=== PATIENT | female | born 1995 | race American Indian/Alaskan Native ===

== ENCOUNTER 2017-03-07 01:49 | Inpatient (IN) | payer MEDICAID, OTHER ==
[2017-03-07] MEDS ORDERED: Penicillin G Potassium 5 MILLUNITS in Sodium Chloride 0.9% 50 ML IV ONE (03:07)
[2017-03-07] MEDS ORDERED: Lactated Ringers 1,000 ML IV SCH (03:15)
[2017-03-07] MEDS ORDERED: fentaNYL 100 MCG/2 ML SDV ONE (04:19)
[2017-03-07] MEDS ORDERED: Lidocaine 1% 50 ML MDV INJECT ONE (04:22)
[2017-03-07] MEDS ORDERED: Lidocaine 1% 50 ML MDV ONE (04:22)
[2017-03-07] MEDS ORDERED: Calcium Carbonate 500 MG Tab.Chew PO PRN (04:56)
[2017-03-07] MEDS ORDERED: Acetaminophen 325 MG Tab PO PRN (04:56)
[2017-03-07] MEDS ORDERED: Sodium Chloride 0.9% 10 ML Syringe FLUSH PRN (04:56)
[2017-03-07] MEDS ORDERED: Witch Hazel Medicated Pads 100/Jar TOP PRN (05:00)
[2017-03-07] MEDS ORDERED: Ibuprofen 600 MG Tab PO PRN (05:00)
[2017-03-07] MEDS ORDERED: Benzocaine 20% Top Spray 56 GM Bottle TOP PRN (05:00)
[2017-03-07] MEDS ORDERED: Docusate Sodium 100 MG Cap PO PRN (05:00)
[2017-03-07] MEDS ORDERED: Measles, Mumps & Rubella Vaccine 0.5 ML SDV SUBCUT ONE (05:00)
--- NOTE | 2017-03-07 05:25 | PCM.LDHP ---
L&D History of Present Illness - General Date of Service: 03/07/17 Admit Problem/Dx: Patient Status Order with Admit Dx/Problem 03/07/17 03:00 Patient Status [ADT] Routine 03/07/17 04:45 Patient Status [ADT] Routine Admission Diagnosis/Problem Admission Diagnosis/Problem Source of Information: Patient - Related Data Allergies/Adverse Reactions: Allergies Allergy/AdvReac Type Severity Reaction Status Date / Time Sulfa (Sulfonamide Allergy Cannot Verified 01/29/14 09:53 Antibiotics) Remember Home Medications: Home Meds Vits #93/Iron Fum/FA [ Formula Tablet] 1 tab PO DAILY 03/07/17 [History] Past Medical History - Past Health History Medical/Surgical History: Denies Medical/Surgical History MARKETING WRITER History: Reports: None : 1 Para: 0 Other OB/BYN History: JORGE-03/10/2017 Psychiatric History: Reports: None - Infectious Disease History Infectious Disease History: Reports: Chicken Pox Social & Family History - Tobacco Use Smoking Status *Q: Current Every Day Smoker Years of Tobacco use: 7 Packs/Tins Daily: 1 Used Tobacco, but Quit: No Second Hand Smoke Exposure: Yes - Caffeine Use Caffeine Use: Reports: Soda - Alcohol Use Days Per Week of Alcohol Use: 0 - Recreational Drug Use Recreational Drug Use: Yes Drug Use in Last 12 Months: Yes Recreational Drug Type: Reports: Marijuana/Hashish, Methamphetamine, Other (see below) Other Recreational Drug Type: hydrocodone Recreational Drug Use Frequency: Weekly H&P Review of Systems - Review of Systems: Review Of Systems: See Below General: Reports: No Symptoms HEENT: Reports: No Symptoms Pulmonary: Reports: No Symptoms Cardiovascular: Reports: No Symptoms Gastrointestinal: Reports: No Symptoms Genitourinary: Reports: No Symptoms Musculoskeletal: Reports: No Symptoms Skin: Reports: No Symptoms Psychiatric: Reports: No Symptoms Neurological: Reports: No Symptoms Hematologic/Lymphatic: Reports: No Symptoms Immunologic: Reports: No Symptoms L&D Exam - Exam Exam: See Below - Vital Signs Vital Signs: Last Vital Signs Temp 36.3 C 03/07/17 04:45 Pulse 79 03/07/17 05:00 Resp 16 03/07/17 05:00 BP 111/83 03/07/17 05:00 Pulse Ox 94 L 03/07/17 05:00 Weight: 111.13 kg - OB Specific Contraction Duration (sec): 50-70 Contraction Frequency (min): 2-5 Contraction Intensity: Moderate - Exam General: Alert, Oriented HEENT: PERRLA, Conjunctiva Clear, EACs Clear, EOMI, Hearing Intact, Mucosa Moist & [place], Nares Patent, Normal Nasal Septum, Posterior Pharynx Clear, TMs Clear Neck: Supple, Trachea Midline Lungs: Clear to Auscultation, Normal Respiratory Effort Cardiovascular: Regular Rate, Regular Rhythm GI/Abdominal Exam: Normal Bowel Sounds, Soft, Non-Tender, No Organomegaly, No Distention, No Abnormal Bruit, No Mass, Pelvis Stable Rectal Exam: Normal Exam, Normal Rectal Tone Genitourinary: Normal external exam, Normal bimanual exam, Normal speculum exam Back Exam: Normal Inspection, Full Range of Motion Extremities: Normal Inspection, Normal Range of Motion, Non-Tender, No Pedal Edema, Normal Capillary Refill Skin: Warm, Dry, Intact Neurological: Cranial Nerves Intact, Reflexes Equal Bilateral Psychiatric: Alert, Normal Affect, Normal Mood - Patient Data Lab Results Last 24 hrs: Laboratory Results - last 24 hr 03/07/17 03/07/17 03/07/17 Range/Units 02:11 02:28 02:29 WBC (4.5-11.0) K/uL RBC (3.30-5.50) M/uL Hgb (12.0-15.0) g/dL Hct (36.0-48.0) % MCV (80-98) fL MCH (27-31) pg MCHC (32-36) % Plt Count (150-400) K/uL Neut % (Auto) (36-66) % Lymph % (Auto) (24-44) % [place] % (Auto) (2-6) % Eos % (Auto) (2-4) % Baso % (Auto) (0-1) % Urine Color Yellow Urine Appearance Cloudy Urine pH 6.0 (4.5-8.0) Ur Specific [place] 1.015 (1.008-1.030) Urine Protein 30 H (NEGATIVE) mg/dL Urine Glucose (UA) Normal (NEGATIVE) mg/dL Urine Ketones Negative (NEGATIVE) mg/dL Urine Occult Blood Large (NEGATIVE) Urine Nitrite Negative (NEGATIVE) Urine Bilirubin Negative (NEGATIVE) Urine Urobilinogen Normal (NORMAL) mg/dL Ur Leukocyte Esterase Moderate (NEGATIVE) Urine RBC 5-10 H (0-5) Urine WBC 5-10 H (0-5) Ur Epithelial Cells Moderate Amorphous Sediment Not seen Urine Bacteria Many Urine Mucus Not seen Membrane Rupture Positive H (NEGATIVE) Urine Opiates Screen Positive H (NEGATIVE) Ur Oxycodone Screen Negative (NEGATIVE) Urine Methadone Screen Negative (NEGATIVE) Ur Propoxyphene Screen Negative (NEGATIVE) Ur Barbiturates Screen Negative (NEGATIVE) Ur Tricyclics Screen Negative (NEGATIVE) Ur Phencyclidine Scrn Negative (NEGATIVE) Ur Amphetamine Screen Positive H (NEGATIVE) U Methamphetamines Scrn Positive H (NEGATIVE) Urine MDMA Screen Negative (NEGATIVE) U Benzodiazepines Scrn Negative (NEGATIVE) U Cocaine Metab Screen Negative (NEGATIVE) U Marijuana (THC) Screen Positive H (NEGATIVE) 03/07/17 Range/Units 03:00 WBC 19.1 H (4.5-11.0) K/uL RBC 4.66 (3.30-5.50) M/uL Hgb 13.3 (12.0-15.0) g/dL Hct 39.2 (36.0-48.0) % MCV 84 (80-98) fL MCH 29 (27-31) pg MCHC 34 (32-36) % Plt Count 401 H (150-400) K/uL Neut % (Auto) 88 H (36-66) % Lymph % (Auto) 7 L (24-44) % [place] % (Auto) 5 (2-6) % Eos % (Auto) 0 L (2-4) % Baso % (Auto) 0 (0-1) % Urine Color Urine Appearance Urine pH (4.5-8.0) Ur Specific [place] (1.008-1.030) Urine Protein (NEGATIVE) mg/dL Urine Glucose (UA) (NEGATIVE) mg/dL Urine Ketones (NEGATIVE) mg/dL Urine Occult Blood (NEGATIVE) Urine Nitrite (NEGATIVE) Urine Bilirubin (NEGATIVE) Urine Urobilinogen (NORMAL) mg/dL Ur Leukocyte Esterase (NEGATIVE) Urine RBC (0-5) Urine WBC (0-5) Ur Epithelial Cells Amorphous Sediment Urine Bacteria Urine Mucus Membrane Rupture (NEGATIVE) Urine Opiates Screen (NEGATIVE) Ur Oxycodone Screen (NEGATIVE) Urine Methadone Screen (NEGATIVE) Ur Propoxyphene Screen (NEGATIVE) Ur Barbiturates Screen (NEGATIVE) Ur Tricyclics Screen (NEGATIVE) Ur Phencyclidine Scrn (NEGATIVE) Ur Amphetamine Screen (NEGATIVE) U Methamphetamines Scrn (NEGATIVE) Urine MDMA Screen (NEGATIVE) U Benzodiazepines Scrn (NEGATIVE) U Cocaine Metab Screen (NEGATIVE) U Marijuana (THC) Screen (NEGATIVE) Result Diagrams: 03/07/17 03:00 - Problem List (1) SNOMED Code(s): 62197852 ICD Code: Z34.90 - ENCNTR FOR SUPRVSN OF NORMAL , UNSP, UNSP TRIMESTER Status: Acute Current Visit: Yes Qualifiers: Weeks of gestation: 40 weeks Qualified Code(s): Z3A.40 - 40 weeks gestation of (2) High risk due to maternal drug abuse in third trimester SNOMED Code(s): 624296232, 177043721 ICD Code: O99.323 - DRUG USE COMPLICATING , THIRD TRIMESTER; F19.90 - OTHER PSYCHOACTIVE SUBSTANCE USE, UNSPECIFIED, UNCOMPLICATED Status: Acute Current Visit: Yes (3) Precipitous delivery SNOMED Code(s): 785020235 ICD Code: O62.3 - PRECIPITATE LABOR Status: Acute Priority: High Current Visit: Yes (4) Prolonged rupture of membranes Status: Acute Priority: High Current Visit: Yes (5) GBS (group B streptococcus) infection SNOMED Code(s): 015959085 ICD Code: A49.1 - STREPTOCOCCAL INFECTION, UNSPECIFIED SITE Status: Acute Priority: High Current Visit: Yes Problem List Initiated/Reviewed/Updated: Yes Orders Last 24hrs: Active Orders 24 hr Category Date Time Status Patient Status [ADT] Routine ADT 03/07/17 03:00 Active Patient Status [ADT] Routine ADT 03/07/17 04:45 Active Ambulate [RC] PER UNIT ROUTINE Care 03/07/17 04:56 Active Communication Order [RC] ASDIRECTED Care 03/07/17 04:56 Active Heart Tones [RC] PER UNIT ROUTINE Care 03/07/17 04:56 Active May Shower [RC] ASDIRECTED Care 03/07/17 04:56 Active Notify Provider Vital Signs [RC] PRN Care 03/07/17 03:00 Active Notify Provider [RC] PRN Care 03/07/17 04:56 Active OB Check [OM.PC] Click to Edit Care 03/07/17 01:54 Ordered Up ad Cecy [RC] ASDIRECTED Care 03/07/17 04:56 Active VTE/DVT Education [RC] Click to Edit Care 03/07/17 04:58 Active Vital Signs [RC] PER UNIT ROUTINE Care 03/07/17 04:56 Active Vital Signs [RC] PFP Care 03/07/17 05:00 Active Regular Diet [DIET] Diet 03/07/17 Breakfast Active CBC W/O DIFF,HEMOGRAM [HEME] Routine Lab 03/08/17 06:00 Ordered Acetaminophen [Tylenol] Med 03/07/17 04:56 Active 650 mg PO Q4H PRN Benzocaine [Qpcv-K-Pkrvqoe 20% [place]] Med 03/07/17 05:00 Active See Dose Instructions TOP Q4H PRN Calcium Carbonate [Tums] Med 03/07/17 04:56 Active 1,000 mg PO Q2H PRN Docusate Sodium [Colace] Med 03/07/17 05:00 Active 100 mg PO BID PRN Ibuprofen [Motrin] Med 03/07/17 05:00 Active 600 mg PO Q6H PRN Lactated Ringers [Ringers, Lactated] 1,000 ml Med 03/07/17 03:15 Active IV BOLUS Oxytocin/Normal Saline [Pitocin in NS 20 Units/1,000 ML Med 03/07/17 04:00 Active ] 20 unit in 1,000 ml IV TITRATE Penicillin G Potassium [Pfizerpen] 2.5 millunits Med 03/07/17 08:00 Active Sodium Chloride 0.9% [Normal Saline] 50 ml IV Q4H Sodium Chloride 0.9% [Saline Flush] Med 03/07/17 04:56 Active 10 ml FLUSH ASDIRECTED PRN Stephanie Smith [Tucks] Med 03/07/17 05:00 Active 1 pad TOP ASDIRECTED PRN Assess Lochia [WOMSER] Per Unit Routine Oth 03/07/17 05:00 Ordered Assess Uterine Involution [WOMSER] Per Unit Routine Oth 03/07/17 05:00 Ordered DVT/VTE Prophylaxis Reflex [OM.PC] Routine Oth 03/07/17 03:00 Ordered Perineal Care [OM.PC] Per Unit Routine Oth 03/07/17 05:01 Ordered Saline Lock Insert [OM.PC] Routine Oth 03/07/17 04:56 Ordered Resuscitation Status Routine Resus Stat 03/07/17 04:56 Ordered Medication Orders Acetaminophen (Tylenol) 650 mg PO Q4H PRN PRN Reason: Pain (Mild 1-3) and fever Benzocaine (Nggg-P-Tglakxq 20% [place]) 0 gm TOP Q4H PRN PRN Reason: Perineal Comfort Measure Calcium Carbonate/Glycine (Tums) 1,000 mg PO Q2H PRN PRN Reason: Indigestion Docusate Sodium (Colace) 100 mg PO BID PRN PRN Reason: Constipation Penicillin G Potassium 2.5 (millunits/ Sodium Chloride) 50 mls @ 50 mls/hr IV Q4H MAXIMUS Lactated Ringer's (Ringers, Lactated) 1,000 mls @ 999 mls/hr IV BOLUS MAXIMUS Last Admin: 03/07/17 03:30 Dose: 999 mls/hr Oxytocin/Sodium Chloride (Pitocin In Ns 20 Units/1,000 Ml) 20 unit in 1,000 mls @ 0 mls/hr IV TITRATE MAXIMUS; KVO PRN Reason: Protocol Ibuprofen (Motrin) 600 mg PO Q6H PRN PRN Reason: mild pain or fever Sodium Chloride (Saline Flush) 10 ml FLUSH ASDIRECTED PRN PRN Reason: Keep Vein Open Stephanie Smith ([place]ellen) 1 pad TOP ASDIRECTED PRN PRN Reason: Hemorrhoids Assessment/Plan Comment:: 03/07/2017 21 yo presented to labor in delivery with SROM of unknown length, yellow in color. JORGE-03/10/2017 SVE per RN- 4/100/0 USDS positive Amnisure positive GBS positive Plan- Monitor labor Monitor FHTs Start IV bolus LR 1000ml Pain management per patient request Up and about if tolerated PCN G for GBS positive Anticipate and plan for a vaginal delivery
--- NOTE | 2017-03-07 05:37 | PCM.DEL ---
L & D Note - General Info Date of Service: 03/07/17 Mother's Due Date: 03/10/17 - Delivery Note Labor: Spontaneous Delivery Outcome: Livebirth Infant Delivery Method: Spontaneous Vaginal Delivery-Single Infant Delivery Mode: Spontaneous Presentation: Left Occiput Anterior (CARLITA) Nuchal Cord: None Anesthesia Type: None Anesthetic: Lidocaine (Xylocaine) 1% Plain Local Anesthetic Volume: 5cc Laceration: Labial Suture type: Chromic Suture size: 3-0 Placenta: Intact, Spontaneous, Meconium Stained Cord: 3 Vessels Resuscitation Needed: No [place]: Bulb Syringe, Stimulated, Warmed, [place] Used Provider: Jyotsna Sinclair Score 1 min: 9 Score 5 min: 9 Score 10 min: 9 Second Stage Interventions: Reports: Encouragement Given, Pushing Effectively Delivery Comments (Free Text/Narrative):: 03/07/2017 21 yo at 39 4/7 gestational weeks normal spontaneous vaginal delivery at 0410 on 03/07/2017 precipitously in CARLITA position. placed on prewarmed blanket on mothers abdomen, cord double clamped and cut, then infant bulb suctioned, warmed, dried, and stimulated and began to vigorously cry and pink in color. APGARS-9/9/9, weight-7lbs 8oz, length-20.2 inches, 3 vessel cord. Placenta spontaneous and intact. Small vaginal laceration repaired in usual fashion, no lacerations noted of the cervix, perineum, or rectum. EBL-250ml. now skin to skin with mother and both stable in labor room. - General Info Admission Dx/Problem (Free Text): Patient Status Order with Admit Dx/Problem 03/07/17 03:00 Patient Status [ADT] Routine 03/07/17 04:45 Patient Status [ADT] Routine Admission Diagnosis/Problem Admission Diagnosis/Problem Functional Status: Reports: Pain Controlled - Review of Systems General: Reports: No Symptoms HEENT: Reports: No Symptoms Pulmonary: Reports: No Symptoms Cardiovascular: Reports: No Symptoms Gastrointestinal: Reports: No Symptoms Genitourinary: Reports: No Symptoms Musculoskeletal: Reports: No Symptoms Skin: Reports: No Symptoms Neurological: Reports: No Symptoms Psychiatric: Reports: No Symptoms - Patient Data Vitals - Most Recent: Last Vital Signs Temp 36.3 C 03/07/17 04:45 Pulse 79 03/07/17 05:00 Resp 16 03/07/17 05:00 BP 111/83 03/07/17 05:00 Pulse Ox 94 L 03/07/17 05:00 Weight - Most Recent: 111.13 kg Lab Results Last 24 Hours: Laboratory Results - last 24 hr 03/07/17 03/07/17 03/07/17 Range/Units 02:11 02:28 02:29 WBC (4.5-11.0) K/uL RBC (3.30-5.50) M/uL Hgb (12.0-15.0) g/dL Hct (36.0-48.0) % MCV (80-98) fL MCH (27-31) pg MCHC (32-36) % Plt Count (150-400) K/uL Neut % (Auto) (36-66) % Lymph % (Auto) (24-44) % [place] % (Auto) (2-6) % Eos % (Auto) (2-4) % Baso % (Auto) (0-1) % Urine Color Yellow Urine Appearance Cloudy Urine pH 6.0 (4.5-8.0) Ur Specific [place] 1.015 (1.008-1.030) Urine Protein 30 H (NEGATIVE) mg/dL Urine Glucose (UA) Normal (NEGATIVE) mg/dL Urine Ketones Negative (NEGATIVE) mg/dL Urine Occult Blood Large (NEGATIVE) Urine Nitrite Negative (NEGATIVE) Urine Bilirubin Negative (NEGATIVE) Urine Urobilinogen Normal (NORMAL) mg/dL Ur Leukocyte Esterase Moderate (NEGATIVE) Urine RBC 5-10 H (0-5) Urine WBC 5-10 H (0-5) Ur Epithelial Cells Moderate Amorphous Sediment Not seen Urine Bacteria Many Urine Mucus Not seen Membrane Rupture Positive H (NEGATIVE) Urine Opiates Screen Positive H (NEGATIVE) Ur Oxycodone Screen Negative (NEGATIVE) Urine Methadone Screen Negative (NEGATIVE) Ur Propoxyphene Screen Negative (NEGATIVE) Ur Barbiturates Screen Negative (NEGATIVE) Ur Tricyclics Screen Negative (NEGATIVE) Ur Phencyclidine Scrn Negative (NEGATIVE) Ur Amphetamine Screen Positive H (NEGATIVE) U Methamphetamines Scrn Positive H (NEGATIVE) Urine MDMA Screen Negative (NEGATIVE) U Benzodiazepines Scrn Negative (NEGATIVE) U Cocaine Metab Screen Negative (NEGATIVE) U Marijuana (THC) Screen Positive H (NEGATIVE) 09/25/17 Range/Units 03:00 WBC 19.1 H (4.5-11.0) K/uL RBC 4.66 (3.30-5.50) M/uL Hgb 13.3 (12.0-15.0) g/dL Hct 39.2 (36.0-48.0) % MCV 84 (80-98) fL MCH 29 (27-31) pg MCHC 34 (32-36) % Plt Count 401 H (150-400) K/uL Neut % (Auto) 88 H (36-66) % Lymph % (Auto) 7 L (24-44) % [place] % (Auto) 5 (2-6) % Eos % (Auto) 0 L (2-4) % Baso % (Auto) 0 (0-1) % Urine Color Urine Appearance Urine pH (4.5-8.0) Ur Specific [place] (1.008-1.030) Urine Protein (NEGATIVE) mg/dL Urine Glucose (UA) (NEGATIVE) mg/dL Urine Ketones (NEGATIVE) mg/dL Urine Occult Blood (NEGATIVE) Urine Nitrite (NEGATIVE) Urine Bilirubin (NEGATIVE) Urine Urobilinogen (NORMAL) mg/dL Ur Leukocyte Esterase (NEGATIVE) Urine RBC (0-5) Urine WBC (0-5) Ur Epithelial Cells Amorphous Sediment Urine Bacteria Urine Mucus Membrane Rupture (NEGATIVE) Urine Opiates Screen (NEGATIVE) Ur Oxycodone Screen (NEGATIVE) Urine Methadone Screen (NEGATIVE) Ur Propoxyphene Screen (NEGATIVE) Ur Barbiturates Screen (NEGATIVE) Ur Tricyclics Screen (NEGATIVE) Ur Phencyclidine Scrn (NEGATIVE) Ur Amphetamine Screen (NEGATIVE) U Methamphetamines Scrn (NEGATIVE) Urine MDMA Screen (NEGATIVE) U Benzodiazepines Scrn (NEGATIVE) U Cocaine Metab Screen (NEGATIVE) U Marijuana (THC) Screen (NEGATIVE) Med Orders - Current: Current Medications Acetaminophen (Tylenol) 650 mg PO Q4H PRN PRN Reason: Pain (Mild 1-3) and fever Benzocaine (Ecqg-Y-Qqpxvzw 20% [place]) 0 gm TOP Q4H PRN PRN Reason: Perineal Comfort Measure Calcium Carbonate/Glycine (Tums) 1,000 mg PO Q2H PRN PRN Reason: Indigestion Docusate Sodium (Colace) 100 mg PO BID PRN PRN Reason: Constipation Penicillin G Potassium 2.5 (millunits/ Sodium Chloride) 50 mls @ 50 mls/hr IV Q4H MAXIMUS Lactated Ringer's (Ringers, Lactated) 1,000 mls @ 999 mls/hr IV BOLUS MAXIMUS Last Admin: 03/07/17 03:30 Dose: 999 mls/hr Oxytocin/Sodium Chloride (Pitocin In Ns 20 Units/1,000 Ml) 20 unit in 1,000 mls @ 0 mls/hr IV TITRATE MAXIMUS; KVO PRN Reason: Protocol Ibuprofen (Motrin) 600 mg PO Q6H PRN PRN Reason: mild pain or fever Sodium Chloride (Saline Flush) 10 ml FLUSH ASDIRECTED PRN PRN Reason: Keep Vein Open Witch Sarah (Tucks) 1 pad TOP ASDIRECTED PRN PRN Reason: Hemorrhoids Discontinued Medications Fentanyl (Sublimaze) Confirm Administered Dose 100 mcg .ROUTE .STK-MED ONE Stop: 03/07/17 04:20 Penicillin G Potassium 5 (millunits/ Sodium Chloride) 50 mls @ 50 mls/hr IV ONETIME ONE Stop: 03/07/17 04:06 Last Admin: 03/07/17 03:47 Dose: 50 mls/hr Lidocaine HCl (Xylocaine 1%) Confirm Administered Dose 50 ml .ROUTE .STK-MED ONE Stop: 03/07/17 04:23 Measles/Mumps/Rubella Vaccine Live (M-M-R Ii Vaccine) 0.5 ml SUBCUT .ONCE ONE Stop: 03/07/17 05:01 - Exam General: Alert, Oriented HEENT: Pupils Equal, Pupils Reactive, EOMI, Mucous Membr. Moist/[place] Neck: Supple Lungs: Clear to Auscultation, Normal Respiratory Effort Cardiovascular: Regular Rate, Regular Rhythm GI/Abdominal Exam: Normal Bowel Sounds, Soft, Non-Tender, No Organomegaly, No Distention, No Abnormal Bruit, No Mass, Pelvis Stable (Female) Exam: Normal External Exam, Normal Speculum Exam, Normal Bimanual Exam Back Exam: Normal Inspection, Full Range of Motion Extremities: Normal Inspection, Normal Range of Motion, Non-Tender, No Pedal Edema, Normal Capillary Refill Skin: Warm, Dry, Intact Wound/Incisions: Healing Well Neurological: No New Focal Deficit Psy/Mental Status: Alert, Normal Affect, Normal Mood - Problem List & Annotations (1) SNOMED Code(s): 96181317 Code(s): Z34.90 - ENCNTR FOR SUPRVSN OF NORMAL , UNSP, UNSP TRIMESTER Status: Acute Current Visit: Yes Qualifiers: Weeks of gestation: 40 weeks Qualified Code(s): Z3A.40 - 40 weeks gestation of (2) High risk due to maternal drug abuse in third trimester SNOMED Code(s): 759190773, 449627583 Code(s): O99.323 - DRUG USE COMPLICATING , THIRD TRIMESTER; F19.90 - OTHER PSYCHOACTIVE SUBSTANCE USE, UNSPECIFIED, UNCOMPLICATED Status: Acute Current Visit: Yes (3) Precipitous delivery SNOMED Code(s): 857285465 Code(s): O62.3 - PRECIPITATE LABOR Status: Acute Priority: High Current Visit: Yes (4) Prolonged rupture of membranes Status: Acute Priority: High Current Visit: Yes (5) GBS (group B streptococcus) infection SNOMED Code(s): 819970370 Code(s): A49.1 - STREPTOCOCCAL INFECTION, UNSPECIFIED SITE Status: Acute Priority: High Current Visit: Yes (6) Laceration of labial mucosa without complication SNOMED Code(s): 284323633 Code(s): S01.512A - LACERATION WITHOUT FOREIGN BODY OF ORAL CAVITY, INIT ENCNTR Status: Acute Current Visit: Yes Qualifiers: Encounter type: initial encounter Qualified Code(s): S01.512A - Laceration without foreign body of oral cavity, initial encounter - Problem List Review Problem List Initiated/Reviewed/Updated: Yes - My Orders Last 24 Hours: My Active Orders 03/07/17 01:54 OB Check [OM.PC] Click to Edit 03/07/17 03:00 Patient Status [ADT] Routine Notify Provider Vital Signs [RC] PRN DVT/VTE Prophylaxis Reflex [OM.PC] Routine 03/07/17 03:15 Lactated Ringers [Ringers, Lactated] 1,000 ml IV BOLUS 03/07/17 04:00 Oxytocin/Normal Saline [Pitocin in NS 20 Units/1,000 ML] 20 unit in 1,000 ml IV TITRATE 03/07/17 04:45 Patient Status [ADT] Routine 03/07/17 04:56 Ambulate [RC] PER UNIT ROUTINE Communication Order [RC] ASDIRECTED Heart Tones [RC] PER UNIT ROUTINE May Shower [RC] ASDIRECTED Notify Provider [RC] PRN Up ad Cecy [RC] ASDIRECTED Vital Signs [RC] PER UNIT ROUTINE Acetaminophen [Tylenol] 650 mg PO Q4H PRN Calcium Carbonate [Tums] 1,000 mg PO Q2H PRN Sodium Chloride 0.9% [Saline Flush] 10 ml FLUSH ASDIRECTED PRN Saline Lock Insert [OM.PC] Routine Resuscitation Status Routine 03/07/17 04:58 VTE/DVT Education [RC] Click to Edit 03/07/17 05:00 Vital Signs [RC] PFP Benzocaine [Oeyy-E-Btzkptp 20% [place]] See Dose Instructions TOP Q4H PRN Docusate Sodium [Colace] 100 mg PO BID PRN Ibuprofen [Motrin] 600 mg PO Q6H PRN Witch Sarah [Tucks] 1 pad TOP ASDIRECTED PRN Assess Lochia [WOMSER] Per Unit Routine Assess Uterine Involution [WOMSER] Per Unit Routine 03/07/17 05:01 Perineal Care [OM.PC] Per Unit Routine 03/07/17 08:00 Penicillin G Potassium [Pfizerpen] 2.5 millunits Sodium Chloride 0.9% [Normal Saline] 50 ml IV Q4H 03/07/17 Breakfast Regular Diet [DIET] 03/08/17 06:00 CBC W/O DIFF,HEMOGRAM [HEME] Routine - Assessment Assessment:: 03/07/2017 21 yo G1 now P1 at 39 4/7 gestational weeks without complications Maternal Drug Use Precipitous Delivery Labs-GBS positive, Rubella equivocal, Hgb-13.3, O positive, Hep B negative, HIV negative, RPR nonreactive, USDS positive for opiates, amphetamines, methamphetamines, and THC Bottlefeeding Prolonged Rupture of Membranes-Unknown time - Plan Plan:: 03/07/2017 21 yo presented to labor in delivery with SROM of unknown length, yellow in color. JORGE-03/10/2017 SVE per RN- 4/100/0 USDS positive Amnisure positive GBS positive Plan- Monitor labor Monitor FHTs Start IV bolus LR 1000ml Pain management per patient request Up and about if tolerated PCN G for GBS positive Anticipate and plan for a vaginal delivery 03/07/2017 Routine Cares Treat UTI-Keflex 500mg BID times three days 48 hour stay due to GBS status
[2017-03-07] MEDS ORDERED: fentaNYL 100 MCG/2 ML SDV IVPUSH ONE (05:47)
[2017-03-07] MEDS ORDERED: Penicillin G Potassium 2.5 MILLUNITS in Sodium Chloride 0.9% 50 ML IV SCH (08:00)
[2017-03-07] MEDS: Cephalexin 250 MG Cap PO SCH ×2 (08:32→18:32)
[2017-03-07] MEDS: Ibuprofen 600 MG Tab PO PRN ×2 (14:07→20:20)
[2017-03-07] MEDS: Acetaminophen 325 MG Tab PO PRN ×2 (16:30→21:58)
[2017-03-08] MEDS: Ibuprofen 600 MG Tab PO PRN ×2 (03:35→15:23)
[2017-03-08] MEDS: Cephalexin 250 MG Cap PO SCH ×2 (06:20→20:46)
--- NOTE | 2017-03-08 08:03 | PCM.PNPP ---
- General Info Date of Service: 03/08/17 Functional Status: Reports: Pain Controlled - Review of Systems General: Reports: No Symptoms HEENT: Reports: No Symptoms Pulmonary: Reports: No Symptoms Cardiovascular: Reports: No Symptoms Gastrointestinal: Reports: No Symptoms Genitourinary: Reports: No Symptoms Musculoskeletal: Reports: No Symptoms Skin: Reports: No Symptoms Neurological: Reports: No Symptoms Psychiatric: Reports: No Symptoms - General Info Date of Service: 03/08/17 - Patient Data Vital Signs - Most Recent: Last Vital Signs Temp 36 C 03/08/17 03:00 Pulse 66 03/08/17 03:00 Resp 14 03/08/17 03:00 BP 123/82 03/08/17 03:00 Pulse Ox 95 03/07/17 16:43 Weight - Most Recent: 111.13 kg Lab Results - Last 24 Hours: Laboratory Results - last 24 hr 03/08/17 Range/Units 04:45 WBC 11.3 H (4.5-11.0) K/uL RBC 3.56 (3.30-5.50) M/uL Hgb 9.9 L D (12.0-15.0) g/dL Hct 30.7 L (36.0-48.0) % MCV 86 (80-98) fL MCH 28 (27-31) pg MCHC 32 (32-36) % Plt Count 292 (150-400) K/uL Med Orders - Current: Current Medications Acetaminophen (Tylenol) 0 mg PO Q4H PRN PRN Reason: Pain Last Admin: 03/07/17 21:58 Dose: 650 mg Benzocaine (Nxow-B-Mhduzln 20% [place]) 0 gm TOP Q4H PRN PRN Reason: Perineal Comfort Measure Last Admin: 03/07/17 14:06 Dose: 1 applic Calcium Carbonate/Glycine (Tums) 1,000 mg PO Q2H PRN PRN Reason: Indigestion Cephalexin (Keflex) 500 mg PO Q12H MAXIMUS Last Admin: 03/08/17 06:20 Dose: 500 mg Docusate Sodium (Colace) 100 mg PO BID PRN PRN Reason: Constipation Oxytocin/Sodium Chloride (Pitocin In Ns 20 Units/1,000 Ml) 20 unit in 1,000 mls @ 0 mls/hr IV TITRATE MAXIMUS; KVO PRN Reason: Protocol Last Titration: 03/07/17 04:45 Dose: 250 ml/hr, 250 mls/hr Ibuprofen (Motrin) 600 mg PO Q6H PRN PRN Reason: Pain Last Admin: 03/08/17 03:35 Dose: 600 mg Sodium Chloride (Saline Flush) 10 ml FLUSH ASDIRECTED PRN PRN Reason: Keep Vein Open Witmarlo Smith (Tucks) 1 pad TOP ASDIRECTED PRN PRN Reason: Hemorrhoids Last Admin: 03/07/17 14:06 Dose: 1 applic Discontinued Medications Acetaminophen (Tylenol) 650 mg PO Q4H PRN PRN Reason: Pain (Mild 1-3) and fever Fentanyl (Sublimaze) Confirm Administered Dose 100 mcg .ROUTE .STK-MED ONE Stop: 03/07/17 04:20 Last Admin: 03/07/17 06:27 Dose: Not Given Fentanyl (Sublimaze) 100 mcg IVPUSH ONETIME ONE Stop: 03/07/17 05:48 Last Admin: 03/07/17 04:30 Dose: 100 mcg Penicillin G Potassium 5 (millunits/ Sodium Chloride) 50 mls @ 50 mls/hr IV ONETIME ONE Stop: 03/07/17 04:06 Last Admin: 03/07/17 03:47 Dose: 50 mls/hr Penicillin G Potassium 2.5 (millunits/ Sodium Chloride) 50 mls @ 50 mls/hr IV Q4H MAXIMUS Lactated Ringer's (Ringers, Lactated) 1,000 mls @ 999 mls/hr IV BOLUS MAXIMUS Last Admin: 03/07/17 03:30 Dose: 999 mls/hr Ibuprofen (Motrin) 600 mg PO Q6H PRN PRN Reason: mild pain or fever Lidocaine HCl (Xylocaine 1%) Confirm Administered Dose 50 ml .ROUTE .STK-MED ONE Stop: 03/07/17 04:23 Last Admin: 03/07/17 04:35 Dose: 50 ml Lidocaine HCl (Xylocaine 1%) 20 ml INJECT ONETIME ONE Stop: 03/07/17 04:23 Last Admin: 03/07/17 08:33 Dose: Not Given Measles/Mumps/Rubella Vaccine Live (M-M-R Ii Vaccine) 0.5 ml SUBCUT .ONCE ONE Stop: 03/07/17 05:01 - Interaction Disposition, : [place] to Nursery Feeding: Bottle Fed Support Person: Mother - Recovery Exam Fundal Tone: Firm Fundal Level: At Umbilicus Fundal Placement: Midline Lochia Amount: Scant Lochia Color: Rubra/Red Perineum Description: Intact, Minimal Bruising/Swelling Episiotomy/Laceration: None - Exam General: Alert, Oriented HEENT: Pupils Equal Neck: Supple Lungs: Clear to Auscultation, Normal Respiratory Effort Cardiovascular: Regular Rate, Regular Rhythm GI/Abdominal Exam: Normal Bowel Sounds, Soft, Non-Tender, No Organomegaly, No Distention, No Abnormal Bruit, No Mass, Pelvis Stable Extremities: Normal Inspection, Normal Range of Motion, Non-Tender, No Pedal Edema, Normal Capillary Refill Skin: Warm, Dry, Intact Wound/Incisions: Healing Well Neurological: No New Focal Deficit Psy/Mental Status: Alert, Normal Affect, Normal Mood - Problem List & Annotations (1) SNOMED Code(s): 91680608 Code(s): Z34.90 - ENCNTR FOR SUPRVSN OF NORMAL , UNSP, UNSP TRIMESTER Status: Acute Current Visit: Yes Qualifiers: Weeks of gestation: 40 weeks Qualified Code(s): Z3A.40 - 40 weeks gestation of (2) High risk due to maternal drug abuse in third trimester SNOMED Code(s): 854171467, 355717890 Code(s): O99.323 - DRUG USE COMPLICATING , THIRD TRIMESTER; F19.90 - OTHER PSYCHOACTIVE SUBSTANCE USE, UNSPECIFIED, UNCOMPLICATED Status: Acute Current Visit: Yes (3) Precipitous delivery SNOMED Code(s): 550286353 Code(s): O62.3 - PRECIPITATE LABOR Status: Acute Priority: High Current Visit: Yes (4) Prolonged rupture of membranes Status: Acute Priority: High Current Visit: Yes (5) GBS (group B streptococcus) infection SNOMED Code(s): 023634488 Code(s): A49.1 - STREPTOCOCCAL INFECTION, UNSPECIFIED SITE Status: Acute Priority: High Current Visit: Yes (6) Laceration of labial mucosa without complication SNOMED Code(s): 087709527 Code(s): S01.512A - LACERATION WITHOUT FOREIGN BODY OF ORAL CAVITY, INIT ENCNTR Status: Acute Current Visit: Yes Qualifiers: Encounter type: initial encounter Qualified Code(s): S01.512A - Laceration without foreign body of oral cavity, initial encounter - Problem List Review Problem List Initiated/Reviewed/Updated: Yes - My Orders Last 24 Hours: My Active Orders 03/07/17 08:18 AMPHETAMINE/METHAMPHETAMINE [REF] Routine 03/07/17 14:14 CONFIRM OPIATES 9 DRUGS (LCMS) [REF] Routine 03/07/17 Breakfast Regular Diet [DIET] 03/08/17 08:00 Ferrous Sulfate 325 mg PO BIDMEALS - Assessment Assessment:: 03/07/2017 21 yo G1 now P1 at 39 4/7 gestational weeks without complications Maternal Drug Use Precipitous Delivery Labs-GBS positive, Rubella equivocal, Hgb-13.3, O positive, Hep B negative, HIV negative, RPR nonreactive, USDS positive for opiates, amphetamines, methamphetamines, and THC Bottlefeeding Prolonged Rupture of Membranes-Unknown time 03/08/2017 Day One Maternal Drug Use in Labial Laceration-no signs of hematoma Bottlefeeding Hgb today-9.9 Fundus firm, bleeding decreasing Voiding and passing gas Planning discharge tomorrow - Plan Plan:: 03/07/2017 21 yo presented to labor in delivery with SROM of unknown length, yellow in color. JORGE-03/10/2017 SVE per RN- 4/100/0 USDS positive Amnisure positive GBS positive Plan- Monitor labor Monitor FHTs Start IV bolus LR 1000ml Pain management per patient request Up and about if tolerated PCN G for GBS positive Anticipate and plan for a vaginal delivery 03/07/2017 Routine Cares Treat UTI-Keflex 500mg BID times three days 48 hour stay due to GBS status 03/08/2017 Continue Routine Cares Continue treatment for UTI Start Iron BID for hgb Will discharge tomorrow per patient request
[2017-03-08] MEDS: Ferrous Sulfate 325 MG Tab PO SCH ×2 (08:36→20:46)
[2017-03-08] MEDS: Acetaminophen 325 MG Tab PO PRN (15:23)
[2017-03-09] MEDS: Cephalexin 250 MG Cap PO SCH ×2 (05:49→17:20)
--- NOTE | 2017-03-09 08:17 | PCM.PNPP ---
- General Info Date of Service: 03/09/17 Admission Dx/Problem (Free Text): Patient Status Order with Admit Dx/Problem 03/07/17 03:00 Patient Status [ADT] Routine 03/07/17 04:45 Patient Status [ADT] Routine Admission Diagnosis/Problem Admission Diagnosis/Problem Functional Status: Reports: Pain Controlled - Review of Systems General: Reports: No Symptoms HEENT: Reports: No Symptoms Pulmonary: Reports: No Symptoms Cardiovascular: Reports: No Symptoms Gastrointestinal: Reports: No Symptoms Genitourinary: Reports: No Symptoms Musculoskeletal: Reports: No Symptoms Skin: Reports: No Symptoms Neurological: Reports: No Symptoms Psychiatric: Reports: No Symptoms - General Info Date of Service: 03/09/17 - Patient Data Vital Signs - Most Recent: Last Vital Signs Temp 35.8 C 03/09/17 01:15 Pulse 78 03/09/17 01:15 Resp 12 03/09/17 01:15 BP 115/68 03/09/17 01:15 Pulse Ox 95 03/09/17 01:15 Weight - Most Recent: 111.13 kg I&O - Last 24 Hours: Intake & Output 03/08/17 03/09/17 03/09/17 22:59 06:59 14:59 Intake Total 500 Balance 500 Lab Results - Last 24 Hours: Laboratory Results - last 24 hr 03/07/17 Range/Units 08:18 U Amphetamin/Meth Scrn See below H (NEG) ng/mL Med Orders - Current: Current Medications Acetaminophen (Tylenol) 0 mg PO Q4H PRN PRN Reason: Pain Last Admin: 03/08/17 15:23 Dose: 650 mg Benzocaine (Tmty-L-Nxerxeo 20% [place]) 0 gm TOP Q4H PRN PRN Reason: Perineal Comfort Measure Last Admin: 03/07/17 14:06 Dose: 1 applic Calcium Carbonate/Glycine (Tums) 1,000 mg PO Q2H PRN PRN Reason: Indigestion Cephalexin (Keflex) 500 mg PO Q12H [facility] Stop: 03/09/17 18:01 Last Admin: 03/09/17 05:49 Dose: 500 mg Docusate Sodium (Colace) 100 mg PO BID PRN PRN Reason: Constipation Ferrous Sulfate (Ferrous Sulfate) 325 mg PO BIDVTALS [facility] Last Admin: 03/08/17 20:46 Dose: 325 mg Oxytocin/Sodium Chloride (Pitocin In Ns 20 Units/1,000 Ml) 20 unit in 1,000 mls @ 0 mls/hr IV TITRATE MAXIMUS; KVO PRN Reason: Protocol Last Titration: 03/07/17 04:45 Dose: 250 ml/hr, 250 mls/hr Ibuprofen (Motrin) 600 mg PO Q6H PRN PRN Reason: Pain Last Admin: 03/08/17 15:23 Dose: 600 mg Measles/Mumps/Rubella Vaccine Live (M-M-R Ii Vaccine) 0.5 ml SUBCUT .ONCE ONE Stop: 03/09/17 10:01 Sodium Chloride (Saline Flush) 10 ml FLUSH ASDIRECTED PRN PRN Reason: Keep Vein Open Witch Sarah (Tucks) 1 pad TOP ASDIRECTED PRN PRN Reason: Hemorrhoids Last Admin: 03/07/17 14:06 Dose: 1 applic Discontinued Medications Acetaminophen (Tylenol) 650 mg PO Q4H PRN PRN Reason: Pain (Mild 1-3) and fever Fentanyl (Sublimaze) Confirm Administered Dose 100 mcg .ROUTE .STK-MED ONE Stop: 03/07/17 04:20 Last Admin: 03/07/17 06:27 Dose: Not Given Fentanyl (Sublimaze) 100 mcg IVPUSH ONETIME ONE Stop: 03/07/17 05:48 Last Admin: 03/07/17 04:30 Dose: 100 mcg Penicillin G Potassium 5 (millunits/ Sodium Chloride) 50 mls @ 50 mls/hr IV ONETIME ONE Stop: 03/07/17 04:06 Last Admin: 03/07/17 03:47 Dose: 50 mls/hr Penicillin G Potassium 2.5 (millunits/ Sodium Chloride) 50 mls @ 50 mls/hr IV Q4H MAXIMUS Lactated Ringer's (Ringers, Lactated) 1,000 mls @ 999 mls/hr IV BOLUS MAXIMUS Last Admin: 03/07/17 03:30 Dose: 999 mls/hr Ibuprofen (Motrin) 600 mg PO Q6H PRN PRN Reason: mild pain or fever Lidocaine HCl (Xylocaine 1%) Confirm Administered Dose 50 ml .ROUTE .STK-MED ONE Stop: 03/07/17 04:23 Last Admin: 09/25/17 04:35 Dose: 50 ml Lidocaine HCl (Xylocaine 1%) 20 ml INJECT ONETIME ONE Stop: 03/07/17 04:23 Last Admin: 03/07/17 08:33 Dose: Not Given Measles/Mumps/Rubella Vaccine Live (M-M-R Ii Vaccine) 0.5 ml SUBCUT .ONCE ONE Stop: 03/07/17 05:01 - Interaction Infant Disposition, : to Nursery Feeding: Bottle Fed Infant Support Person: Mother - Recovery Exam Fundal Tone: Firm Fundal Level: 1 Fingerbreadths Below Umbilicus Fundal Placement: Right Lochia Amount: Small Lochia Color: Rubra/Red Perineum Description: Intact, Minimal Bruising/Swelling Episiotomy/Laceration: None Bladder Status: Palpable - Exam General: Alert, Oriented HEENT: Pupils Equal Neck: Supple Lungs: Clear to Auscultation, Normal Respiratory Effort Cardiovascular: Regular Rate, Regular Rhythm GI/Abdominal Exam: Normal Bowel Sounds, Soft, Non-Tender, No Organomegaly, No Distention, No Abnormal Bruit, No Mass, Pelvis Stable Extremities: Normal Inspection, Normal Range of Motion, Non-Tender, No Pedal Edema, Normal Capillary Refill Skin: Warm, Dry, Intact Wound/Incisions: Healing Well Neurological: No New Focal Deficit Psy/Mental Status: Alert, Normal Affect, Normal Mood - Problem List & Annotations (1) SNOMED Code(s): 01047762 Code(s): Z34.90 - ENCNTR FOR SUPRVSN OF NORMAL , UNSP, UNSP TRIMESTER Status: Acute Current Visit: Yes Qualifiers: Weeks of gestation: 40 weeks Qualified Code(s): Z3A.40 - 40 weeks gestation of (2) High risk due to maternal drug abuse in third trimester SNOMED Code(s): 161715237, 750418183 Code(s): O99.323 - DRUG USE COMPLICATING , THIRD TRIMESTER; F19.90 - OTHER PSYCHOACTIVE SUBSTANCE USE, UNSPECIFIED, UNCOMPLICATED Status: Acute Current Visit: Yes (3) Precipitous delivery SNOMED Code(s): 482556509 Code(s): O62.3 - PRECIPITATE LABOR Status: Acute Priority: High Current Visit: Yes (4) Prolonged rupture of membranes Status: Acute Priority: High Current Visit: Yes (5) GBS (group B streptococcus) infection SNOMED Code(s): 566981589 Code(s): A49.1 - STREPTOCOCCAL INFECTION, UNSPECIFIED SITE Status: Acute Priority: High Current Visit: Yes (6) Laceration of labial mucosa without complication SNOMED Code(s): 805723898 Code(s): S01.512A - LACERATION WITHOUT FOREIGN BODY OF ORAL CAVITY, INIT ENCNTR Status: Acute Current Visit: Yes Qualifiers: Encounter type: initial encounter Qualified Code(s): S01.512A - Laceration without foreign body of oral cavity, initial encounter - Problem List Review Problem List Initiated/Reviewed/Updated: Yes - My Orders Last 24 Hours: My Active Orders 03/08/17 08:00 Ferrous Sulfate 325 mg PO BIDMEALS 03/09/17 10:00 Measles, Mumps & Rubella [M-M-R II Vaccine] 0.5 ml SUBCUT .ONCE ONE - Assessment Assessment:: 03/07/2017 21 yo G1 now P1 at 39 4/7 gestational weeks without complications Maternal Drug Use Precipitous Delivery Labs-GBS positive, Rubella equivocal, Hgb-13.3, O positive, Hep B negative, HIV negative, RPR nonreactive, USDS positive for opiates, amphetamines, methamphetamines, and THC Bottlefeeding Prolonged Rupture of Membranes-Unknown time 03/08/2017 Day One Maternal Drug Use in Labial Laceration-no signs of hematoma Bottlefeeding Hgb today-9.9 Fundus firm, bleeding decreasing Voiding and passing gas Planning discharge tomorrow 03/09/2017 Day Two Maternal Drug Use Labial laceration-no signs of a hematoma Bottlefeeding Fundus firm, bleeding decreasing Plan discharge today - Plan Plan:: 03/07/2017 21 yo presented to labor in delivery with SROM of unknown length, yellow in color. JORGE-03/10/2017 SVE per RN- 4/100/0 USDS positive Amnisure positive GBS positive Plan- Monitor labor Monitor FHTs Start IV bolus LR 1000ml Pain management per patient request Up and about if tolerated PCN G for GBS positive Anticipate and plan for a vaginal delivery 03/07/2017 Routine Cares Treat UTI-Keflex 500mg BID times three days 48 hour stay due to GBS status 03/08/2017 Continue Routine Cares Continue treatment for UTI Start Iron BID for hgb Will discharge tomorrow per patient request 03/09/2017 Continue Routine Cares Continue treatment for UTI Continue Iron BID Discharge home today MMR to be given To yazan Aguayo in 6 weeks for visit
[2017-03-09] MEDS: Ibuprofen 600 MG Tab PO PRN ×2 (08:18→15:20)
[2017-03-09] MEDS: Ferrous Sulfate 325 MG Tab PO SCH ×2 (08:23→17:19)
[2017-03-09] MEDS ORDERED: Measles, Mumps & Rubella Vaccine 0.5 ML SDV SUBCUT ONE (10:00)
[2017-03-09 15:19] VITALS: BP 133/81
[2017-03-09] MEDS ORDERED: Ibuprofen 200 MG Tab, 24 Tab Bulk Bottle PO PRN (16:48)
[2017-03-09] MEDS ORDERED: Acetaminophen 325 MG Tab, 50 Tab Bulk Bottle PO PRN (16:48)
[2017-03-10 16:50] LABS: MORPHINE Not Detected (NOTDET); OXYMORPHONE Not Detected (NOTDET)
== END 2017-03-09 17:48 | disposition home or self-care (01) | DRG 774 ==
LOC: JP.OBCHECK 01:49 → JP.OB 02:51 → OBSVTOIN 04:10 → JP.OB 04:10 → JP.MS 06:08
PROVIDERS: ADMIT Advanced Practice Midwife; ATTEND Advanced Practice Midwife
PROC: 0HQ9XZZ Repair Perineum Skin, External Approach (ICD-10-PCS; principal; 2017-03-07)
PROC: 10E0XZZ Delivery of Products of Conception, External Approach (ICD-10-PCS; principal; 2017-03-07)
DX: O62.3 Precipitate labor (principal); O75.3 Other infection during labor; O99.324 Drug use complicating childbirth; O99.824 Streptococcus B carrier state complicating childbirth; O70.9 Perineal laceration during delivery, unspecified; F15.90 Other stimulant use, unspecified, uncomplicated; F12.90 Cannabis use, unspecified, uncomplicated; F11.90 Opioid use, unspecified, uncomplicated; O99.334 Smoking (tobacco) complicating childbirth; F17.210 Nicotine dependence, cigarettes, uncomplicated; Z3A.40 40 weeks gestation of pregnancy; Z37.0 Single live birth; Z23 Encounter for immunization
CPT/HCPCS: 36415; 59409; 80305; 80307; 81001; 84112; 85025; 85027; 88307; 90707; A9270-GY; G0480; J2540; J2590; J3010; J7050; J7120

== ENCOUNTER 2017-12-31 03:22 | Emergency (ER) | payer MEDICAID ==
[2017-12-31] MEDS ORDERED: HYDROmorphone 0.5 MG/0.5 ML Syringe IVPUSH ONE ×2 (03:47→04:57)
[2017-12-31] MEDS ORDERED: Ondansetron 4 MG/2 ML SDV IVPUSH ONE (03:47)
[2017-12-31] MEDS ORDERED: Sodium Chloride 0.9% 1,000 ML IV SCH ×2 (04:00→05:45)
--- NOTE | 2017-12-31 04:00 | EDM.PDOC ---
<OfficerRamin - Last Filed: 12/31/17 09:24> ED HPI GENERAL MEDICAL PROBLEM - General Chief Complaint: Abdominal Pain Stated Complaint: ABD PAIN Time Seen by Provider: 12/31/17 03:49 - Related Data Allergies Allergy/AdvReac Type Severity Reaction Status Date / Time Sulfa (Sulfonamide Allergy Cannot Verified 12/31/17 03:28 Antibiotics) Remember ED EXAM, GI/ABD - Physical Exam Exam: Not Obtained Text/Narrative:: I personally did not examine this patient, please see general surgery's note for physical exam as well as Dr. Carroll's note Course - Vital Signs Last Recorded V/S: Last Vital Signs Temp 35.6 C 12/31/17 03:29 Pulse 95 12/31/17 09:30 Resp 16 12/31/17 09:30 BP 121/83 12/31/17 09:30 Pulse Ox 96 12/31/17 09:30 - Orders/Labs/Meds Labs: Laboratory Tests 12/31/17 12/31/17 12/31/17 Range/Units 03:48 03:56 03:56 WBC 11.8 H (4.5-11.0) K/uL RBC 5.09 (3.30-5.50) M/uL Hgb 13.6 D (12.0-15.0) g/dL Hct 41.0 (36.0-48.0) % MCV 81 (80-98) fL MCH 27 (27-31) pg MCHC 33 (32-36) % Plt Count 402 H (150-400) K/uL Neut % (Auto) 86 H (36-66) % Lymph % (Auto) 9 L (24-44) % Grayson % (Auto) 5 (2-6) % Eos % (Auto) 0 L (2-4) % Baso % (Auto) 0 (0-1) % Sodium 140 (140-148) mmol/L Potassium 3.6 (3.6-5.2) mmol/L Chloride 105 (100-108) mmol/L Carbon Dioxide 24 (21-32) mmol/L Anion Gap 11.5 (5.0-14.0) mmol/L BUN 5 L (7-18) mg/dL Creatinine 0.7 (0.6-1.0) mg/dL Est Cr Clr Drug Dosing 107.01 mL/min Estimated GFR (MDRD) > 60 (>60) Glucose 128 H (74-106) mg/dL Calcium 9.0 (8.5-10.1) mg/dL Total Bilirubin 0.3 (0.2-1.0) mg/dL AST 20 (15-37) U/L ALT 16 (12-78) U/L Alkaline Phosphatase 119 H (46-116) U/L C-Reactive Protein (0.0-0.3) mg/dL Total Protein 7.5 (6.4-8.2) g/dL Albumin 3.5 (3.4-5.0) g/dL Globulin 4.0 H (2.3-3.5) g/dL Albumin/Globulin Ratio 0.9 L (1.2-2.2) Lipase 193 (73-393) U/L Urine Color Yellow Urine Appearance Cloudy Urine pH 9.0 H (4.5-8.0) Ur Specific Ferrum 1.020 (1.008-1.030) Urine Protein Negative (NEGATIVE) mg/dL Urine Glucose (UA) Normal (NEGATIVE) mg/dL Urine Ketones 15 H (NEGATIVE) mg/dL Urine Occult Blood Negative (NEGATIVE) Urine Nitrite Negative (NEGATIVE) Urine Bilirubin Negative (NEGATIVE) Urine Urobilinogen Normal (NORMAL) mg/dL Ur Leukocyte Esterase Large (NEGATIVE) Urine RBC Not seen (0-5) Urine WBC 5-10 H (0-5) Ur Epithelial Cells Many Amorphous Sediment Many Urine Bacteria Rare Urine Mucus Rare Urine HCG, Qual Urine Opiates Screen (NEGATIVE) Ur Oxycodone Screen (NEGATIVE) Urine Methadone Screen (NEGATIVE) Ur Propoxyphene Screen (NEGATIVE) Ur Barbiturates Screen (NEGATIVE) Ur Tricyclics Screen (NEGATIVE) Ur Phencyclidine Scrn (NEGATIVE) Ur Amphetamine Screen (NEGATIVE) U Methamphetamines Scrn (NEGATIVE) Urine MDMA Screen (NEGATIVE) U Benzodiazepines Scrn (NEGATIVE) U Cocaine Metab Screen (NEGATIVE) U Marijuana (THC) Screen (NEGATIVE) 12/31/17 12/31/17 12/31/17 Range/Units 04:24 05:12 05:12 WBC (4.5-11.0) K/uL RBC (3.30-5.50) M/uL Hgb (12.0-15.0) g/dL Hct (36.0-48.0) % MCV (80-98) fL MCH (27-31) pg MCHC (32-36) % Plt Count (150-400) K/uL Neut % (Auto) (36-66) % Lymph % (Auto) (24-44) % Grayson % (Auto) (2-6) % Eos % (Auto) (2-4) % Baso % (Auto) (0-1) % Sodium (140-148) mmol/L Potassium (3.6-5.2) mmol/L Chloride (100-108) mmol/L Carbon Dioxide (21-32) mmol/L Anion Gap (5.0-14.0) mmol/L BUN (7-18) mg/dL Creatinine (0.6-1.0) mg/dL Est Cr Clr Drug Dosing mL/min Estimated GFR (MDRD) (>60) Glucose (74-106) mg/dL Calcium (8.5-10.1) mg/dL Total Bilirubin (0.2-1.0) mg/dL AST (15-37) U/L ALT (12-78) U/L Alkaline Phosphatase (46-116) U/L C-Reactive Protein 0.65 H (0.0-0.3) mg/dL Total Protein (6.4-8.2) g/dL Albumin (3.4-5.0) g/dL Globulin (2.3-3.5) g/dL Albumin/Globulin Ratio (1.2-2.2) Lipase (73-393) U/L Urine Color Urine Appearance Urine pH (4.5-8.0) Ur Specific Ferrum (1.008-1.030) Urine Protein (NEGATIVE) mg/dL Urine Glucose (UA) (NEGATIVE) mg/dL Urine Ketones (NEGATIVE) mg/dL Urine Occult Blood (NEGATIVE) Urine Nitrite (NEGATIVE) Urine Bilirubin (NEGATIVE) Urine Urobilinogen (NORMAL) mg/dL Ur Leukocyte Esterase (NEGATIVE) Urine RBC (0-5) Urine WBC (0-5) Ur Epithelial Cells Amorphous Sediment Urine Bacteria Urine Mucus Urine HCG, Qual Negative Urine Opiates Screen Presumptive positive H (NEGATIVE) Ur Oxycodone Screen Negative (NEGATIVE) Urine Methadone Screen Negative (NEGATIVE) Ur Propoxyphene Screen Negative (NEGATIVE) Ur Barbiturates Screen Negative (NEGATIVE) Ur Tricyclics Screen Negative (NEGATIVE) Ur Phencyclidine Scrn Negative (NEGATIVE) Ur Amphetamine Screen Presumptive positive H (NEGATIVE) U Methamphetamines Scrn Presumptive positive H (NEGATIVE) Urine MDMA Screen Negative (NEGATIVE) U Benzodiazepines Scrn Negative (NEGATIVE) U Cocaine Metab Screen Negative (NEGATIVE) U Marijuana (THC) Screen Presumptive positive H (NEGATIVE) Meds: Medications Discontinued Medications Generic Name Dose Route Start Last Admin Trade Name Freq PRN Reason Stop Dose Admin Hydromorphone HCl 0.5 mg 12/31/17 03:47 12/31/17 03:59 Dilaudid IVPUSH 12/31/17 03:48 0.5 mg ONETIME ONE Administration Hydromorphone HCl 0.5 mg 12/31/17 04:57 12/31/17 05:04 Dilaudid IVPUSH 12/31/17 04:58 0.5 mg ONETIME ONE Administration Sodium Chloride 1,000 mls @ 999 mls/hr 12/31/17 04:00 12/31/17 03:59 Normal Saline IV 999 mls/hr ASDIRECTED MAXIMUS Administration Sodium Chloride 80 mls @ 3.5 mls/sec 12/31/17 05:15 12/31/17 06:08 Normal Saline IV 3.5 mls/sec ASDIRECTED MAXIMUS Administration Sodium Chloride 1,000 mls @ 999 mls/hr 12/31/17 05:18 12/31/17 05:29 Normal Saline IV 12/31/17 06:18 999 mls/hr .BOLUS ONE Administration Sodium Chloride 1,000 mls @ 999 mls/hr 12/31/17 05:45 Normal Saline IV ASDIRECTED MAXIMUS Iopamidol 128 ml 12/31/17 05:01 12/31/17 06:08 Isovue-300 (61%) IV 01/01/18 05:02 128 ml . DIRECTED PRN Administration RADIOLOGY EXAM Ondansetron HCl 4 mg 12/31/17 03:47 12/31/17 04:00 Zofran IVPUSH 12/31/17 03:48 4 mg ONETIME ONE Administration - Re-Assessments/Exams Free Text/Narrative Re-Assessment/Exam: 12/31/17 09:24 Took over care from Dr. Carroll at 7:30 this morning pending ultrasound and consultation with general surgery, Dr. Armenta did arrive in emergency department for evaluation and discussed with the patient the need for cholecystectomy patient has elected to do this as an outpatient, the outpatient surgery department will call and schedule for an elective surgical procedure next week Departure - Departure Time of Disposition: 09:27 Disposition: Home, Self-Care 01 Condition: Fair Clinical Impression: Cholecystitis - Discharge Information Instructions: Cholecystitis, [id number] Referrals: PCP,None [Primary Care Provider] - Forms: ED Department Discharge Additional Instructions: Use hydrocodone as needed for pain control, use Zofran as needed for nausea and vomiting, recommend clear liquid diet, plan is for have outpatient surgery call you on Tuesday if you do not hear from them by 10:00 please contact the outpatient surgery department and schedule your surgery with Dr. Armenta, call return to the emergency department worsening of symptoms - Assessment/Plan Plan: Assessment Acuity = acute Site and laterality = cholecystitis Etiology = probably related to cholelithiasis Manifestations = abdominal pain Location of injury = Home Lab values = WBC elevated 11.8 consistent leukocytosis, urinalysis reveals 5-10 WBCs consistent with a pyuria beta-hCG was negative and urine cultures pending urine drug screen positive for methamphetamine and cannabis, CT scan and ultrasound consistent with acute cholecystitis Plan Per discussion with general surgery patient elected to have this done as an outpatient procedure will call and schedule next week provided hydrocodone 5/ 325 one tab by mouth 3 times a day when necessary total #10, Zofran 4 mg ODT 1 tablet by mouth 3 times a day when necessary total #5 This note was dictated using Luminal voice recognition software please call with any questions on syntax or grammar. <Cindy Carroll - Last Filed: 01/03/18 01:45> ED HPI GENERAL MEDICAL PROBLEM - General Source of Information: Reports: Patient History Limitations: Reports: No Limitations - History of Present Illness INITIAL COMMENTS - FREE TEXT/NARRATIVE: pt arrived with pain under both diaphrams. She did have similar pain when she was constipated. She has been having regular bms. She has not vomited. Onset: Today, Sudden, Other ( started in the middle of the nite. ) Duration: Hour(s):, Getting Worse Location: Reports: Abdomen Associated Symptoms: Reports: No Other Symptoms Abdominal Pain Score (Numeric/FACES): 8 Past Medical History - Past Health History Medical/Surgical History: Denies Medical/Surgical History WATER SANDER History: Reports: None, Other WATER SANDER History: JORGE-03/10/2017 Psychiatric History: Reports: None - Infectious Disease History Infectious Disease History: Reports: Chicken Pox Social & Family History - Family History Family Medical History: Noncontributory - Tobacco Use Smoking Status *Q: Current Every Day Smoker Years of Tobacco use: 6 Packs/Tins Daily: 0.5 - Caffeine Use Caffeine Use: Reports: None - Recreational Drug Use Recreational Drug Use: No ED ROS GENERAL - Review of Systems Review Of Systems: See Below Constitutional: Reports: No Symptoms HEENT: Reports: No Symptoms Respiratory: Reports: No Symptoms Cardiovascular: Reports: No Symptoms Endocrine: Reports: No Symptoms GI/Abdominal: Reports: Abdominal Pain, Other ( pressure on her diaphram. ) : Reports: No Symptoms Musculoskeletal: Reports: No Symptoms Skin: Reports: No Symptoms ED EXAM, GI/ABD - Physical Exam Exam Limited By: No Limitations General Appearance: Alert, Anxious Eyes: Bilateral: Normal Appearance, EOMI Ears: Normal TMs Nose: Normal Inspection Throat/Mouth: Normal Inspection Head: Atraumatic Neck: Normal Inspection Respiratory/Chest: No Respiratory Distress Cardiovascular: Regular Rate, Rhythm GI/Abdominal Exam: Tender, Other (pt is tender in the upper abdoman. She has the sensation that she has pressure under her diaphram. ) (Female) Exam: Deferred Rectal (Female) Exam: Deferred Back Exam: Normal Inspection Extremities: Normal Inspection Neurological: Alert, Oriented, Normal Cognition Psychiatric: Normal Affect Course - Orders/Labs/Meds Labs: Laboratory Tests 12/31/17 12/31/17 12/31/17 Range/Units 03:48 03:56 03:56 WBC 11.8 H (4.5-11.0) K/uL RBC 5.09 (3.30-5.50) M/uL Hgb 13.6 D (12.0-15.0) g/dL Hct 41.0 (36.0-48.0) % MCV 81 (80-98) fL MCH 27 (27-31) pg MCHC 33 (32-36) % Plt Count 402 H (150-400) K/uL Neut % (Auto) 86 H (36-66) % Lymph % (Auto) 9 L (24-44) % Grayson % (Auto) 5 (2-6) % Eos % (Auto) 0 L (2-4) % Baso % (Auto) 0 (0-1) % Sodium 140 (140-148) mmol/L Potassium 3.6 (3.6-5.2) mmol/L Chloride 105 (100-108) mmol/L Carbon Dioxide 24 (21-32) mmol/L Anion Gap 11.5 (5.0-14.0) mmol/L BUN 5 L (7-18) mg/dL Creatinine 0.7 (0.6-1.0) mg/dL Est Cr Clr Drug Dosing 107.01 mL/min Estimated GFR (MDRD) > 60 (>60) Glucose 128 H (74-106) mg/dL Calcium 9.0 (8.5-10.1) mg/dL Total Bilirubin 0.3 (0.2-1.0) mg/dL AST 20 (15-37) U/L ALT 16 (12-78) U/L Alkaline Phosphatase 119 H (46-116) U/L C-Reactive Protein (0.0-0.3) mg/dL Total Protein 7.5 (6.4-8.2) g/dL Albumin 3.5 (3.4-5.0) g/dL Globulin 4.0 H (2.3-3.5) g/dL Albumin/Globulin Ratio 0.9 L (1.2-2.2) Lipase 193 (73-393) U/L Urine Color Yellow Urine Appearance Cloudy Urine pH 9.0 H (4.5-8.0) Ur Specific Ferrum 1.020 (1.008-1.030) Urine Protein Negative (NEGATIVE) mg/dL Urine Glucose (UA) Normal (NEGATIVE) mg/dL Urine Ketones 15 H (NEGATIVE) mg/dL Urine Occult Blood Negative (NEGATIVE) Urine Nitrite Negative (NEGATIVE) Urine Bilirubin Negative (NEGATIVE) Urine Urobilinogen Normal (NORMAL) mg/dL Ur Leukocyte Esterase Large (NEGATIVE) Urine RBC Not seen (0-5) Urine WBC 5-10 H (0-5) Ur Epithelial Cells Many Amorphous Sediment Many Urine Bacteria Rare Urine Mucus Rare Urine HCG, Qual Urine Opiates Screen (NEGATIVE) Ur Oxycodone Screen (NEGATIVE) Urine Methadone Screen (NEGATIVE) Ur Propoxyphene Screen (NEGATIVE) Ur Barbiturates Screen (NEGATIVE) Ur Tricyclics Screen (NEGATIVE) Ur Phencyclidine Scrn (NEGATIVE) Ur Amphetamine Screen (NEGATIVE) U Methamphetamines Scrn (NEGATIVE) Urine MDMA Screen (NEGATIVE) U Benzodiazepines Scrn (NEGATIVE) U Cocaine Metab Screen (NEGATIVE) U Marijuana (THC) Screen (NEGATIVE) 12/31/17 12/31/17 12/31/17 Range/Units 04:24 05:12 05:12 WBC (4.5-11.0) K/uL RBC (3.30-5.50) M/uL Hgb (12.0-15.0) g/dL Hct (36.0-48.0) % MCV (80-98) fL MCH (27-31) pg MCHC (32-36) % Plt Count (150-400) K/uL Neut % (Auto) (36-66) % Lymph % (Auto) (24-44) % Grayson % (Auto) (2-6) % Eos % (Auto) (2-4) % Baso % (Auto) (0-1) % Sodium (140-148) mmol/L Potassium (3.6-5.2) mmol/L Chloride (100-108) mmol/L Carbon Dioxide (21-32) mmol/L Anion Gap (5.0-14.0) mmol/L BUN (7-18) mg/dL Creatinine (0.6-1.0) mg/dL Est Cr Clr Drug Dosing mL/min Estimated GFR (MDRD) (>60) Glucose (74-106) mg/dL Calcium (8.5-10.1) mg/dL Total Bilirubin (0.2-1.0) mg/dL AST (15-37) U/L ALT (12-78) U/L Alkaline Phosphatase (46-116) U/L C-Reactive Protein 0.65 H (0.0-0.3) mg/dL Total Protein (6.4-8.2) g/dL Albumin (3.4-5.0) g/dL Globulin (2.3-3.5) g/dL Albumin/Globulin Ratio (1.2-2.2) Lipase (73-393) U/L Urine Color Urine Appearance Urine pH (4.5-8.0) Ur Specific Ferrum (1.008-1.030) Urine Protein (NEGATIVE) mg/dL Urine Glucose (UA) (NEGATIVE) mg/dL Urine Ketones (NEGATIVE) mg/dL Urine Occult Blood (NEGATIVE) Urine Nitrite (NEGATIVE) Urine Bilirubin (NEGATIVE) Urine Urobilinogen (NORMAL) mg/dL Ur Leukocyte Esterase (NEGATIVE) Urine RBC (0-5) Urine WBC (0-5) Ur Epithelial Cells Amorphous Sediment Urine Bacteria Urine Mucus Urine HCG, Qual Negative Urine Opiates Screen Presumptive positive H (NEGATIVE) Ur Oxycodone Screen Negative (NEGATIVE) Urine Methadone Screen Negative (NEGATIVE) Ur Propoxyphene Screen Negative (NEGATIVE) Ur Barbiturates Screen Negative (NEGATIVE) Ur Tricyclics Screen Negative (NEGATIVE) Ur Phencyclidine Scrn Negative (NEGATIVE) Ur Amphetamine Screen Presumptive positive H (NEGATIVE) U Methamphetamines Scrn Presumptive positive H (NEGATIVE) Urine MDMA Screen Negative (NEGATIVE) U Benzodiazepines Scrn Negative (NEGATIVE) U Cocaine Metab Screen Negative (NEGATIVE) U Marijuana (THC) Screen Presumptive positive H (NEGATIVE)
[2017-12-31] MEDS ORDERED: Iopamidol 612 MG/ML 150 ML Bottle IV PRN (05:01)
[2017-12-31] MEDS ORDERED: Sodium Chloride 0.9% 80 ML IV SCH (05:15)
[2017-12-31] MEDS ORDERED: Sodium Chloride 0.9% 1,000 ML IV ONE (05:18)
[2017-12-31 09:44] VITALS: BP 121/83
--- NOTE | 2017-12-31 13:04 | CONS ---
DATE OF SERVICE: 12/31/2017 REFERRING PHYSICIAN: CONSULTING PHYSICIAN: Terrell Armenta MD REASON FOR CONSULTATION: Right upper quadrant abdominal pain. HISTORY OF PRESENT ILLNESS: A pleasant 22-year-old female with a chronic (greater than one year) history of right upper quadrant abdominal pain associated with some nausea. Modified by eating greasy or fatty foods. Pain is described as 5-8/10 and currently is 0-1/10. PAST SURGICAL HISTORY: No previous abdominal surgery. PAST MEDICAL HISTORY: None. SOCIAL HISTORY: She does smoke. FAMILY HISTORY: Noncontributory. REVIEW OF SYSTEMS: GENERAL: No significant changes. HEENT: No symptoms. CARDIOVASCULAR: No history of congenital abnormalities. RESPIRATORY: No history of asthma. GASTROINTESTINAL: No acholic stools. GENITOURINARY: No dysuria. NEUROLOGICAL: No symptoms. PSYCHIATRIC: No symptoms. The remainder of review of systems reviewed and negative. DIAGNOSTIC DATA: CT scan, which I did review shows cholelithiasis cholecystitis. LABORATORY DATA: Show a normal total bilirubin. ASSESSMENT: Cholelithiasis cholecystitis. PLAN: The patient and I discussed laparoscopic cholecystectomy, which she does require. The patient would like to schedule this as an outpatient as her pain has subsided today. I did discuss with her the importance of getting this addressed. We also discussed the risks, benefits, alternatives, and limitations of surgery, and nonsurgical options. We discussed common bile duct injury, cystic duct leaks, possibility of open surgery, chronic pain, and other risks not listed here. The patient understands these risks and wishes to proceed. Terrell Armenta MD /[id number]
--- NOTE | 2018-01-02 09:03 | CR ---
Abdomen Series w Chest 1V CLINICAL HISTORY: Abdominal pain FINDINGS: Lung wilkinson are clear. No free air is identified. There are scattered air-filled loops of s mall bowel. There is gas and feces throughout the colon. Intestinal gas pattern is nonacute IMPRESSION: Mild gaseous distention in a nonacute pattern
== END 2017-12-31 10:14 | disposition home or self-care (01) ==
LOC: JP.ED 03:22
DX: K81.0 Acute cholecystitis (principal); Z88.2 Allergy status to sulfonamides; F17.210 Nicotine dependence, cigarettes, uncomplicated
CPT/HCPCS: 36415; 74022; 74177; 76705; 80053; 80305; 81001; 81025; 83690; 85025; 86140; 87086; 96361; 96374; 96375; 96376; 99284; J1170; J2405; J7030